=== PATIENT | female | born 1960 | race Caucasian/White ===

== ENCOUNTER 2019-07-08 08:16 | Outpatient (CLI) | payer OTHER, SELFPAY ==
--- NOTE | ~2019-07-08 | DEXA_ITS ---
BMD(1) Young-Adult(2) Age-Matched(3) Region (g/cm2) T-score Z-score WHO Classification L1 0.865 -2.2 -0.7 Osteopenia L2 0.956 -2.1 -0.5 Osteopenia L3 1.007 -1.7 -0.1 Osteopenia L4 0.931 -2.2 -0.7 Osteopenia L1-L4 0.942 -2.0 -0.5 Osteopenia Trend: L1-L4 Change vs Change vs Measured Age BMD(1) Baseline Previous Date (years) (g/cm2) (%) (%) 07/08/2019 [age] 0.942 baseline - 1 - Statistically 68% of repeat scans fall within 1SD (+- 0.010 g/cm2 for AP Spine L1-L4) 2 - [place] (Combined NHANES (ages 20-30) / [employer] (ages 20-40)) AP Spine Reference Population (v112) 3 - Matched for Age, Weight (females 25-100 kg), Ethnic 11 - World Health Organization - Definition of Osteoporosis and Osteopenia for Women: Normal = T-score at or above -1.0 SD; Osteopenia = T-score between -1.0 and -2.5 SD; Osteoporosis = T-score at or below -2.5 SD; (WHO definitions only apply when a young healthy Women reference database is used to determine T-scores.) Printed: 07/08/2019 8:44:19 AM (13.60)76:3.00:50.00:12.0 0.00:9.72 0.60x1.05 17.1:%Fat=27.7% 0.00:0.00 0.00:0.00 Verify bone is centered and there is sufficient tissue next to bone. Filename: [id number] Scan Mode: Standard;ThinkVidyacan 37.0 TourNative [id number] BMD(1) Young-Adult(2,7) Age-Matched(3) Region (g/cm2) T-score Z-score WHO Classification Neck Left 0.683 -2.6 -1.1 Osteoporosis Right 0.704 -2.4 -0.9 Osteopenia Mean 0.693 -2.5 -1.0 Osteoporosis Difference 0.021 0.1 0.1 - Total Left 0.709 -2.4 -1.2 Osteopenia Right 0.731 -2.2 -1.0 Osteopenia Mean 0.720 -2.3 -1.1 Osteopenia Difference 0.022 0.2 0.2 - Hip [place] Length Comparison (mm) (Right = 101.7 mm) (Mean = 99.6 mm) (Left = 100.9 mm) Trend: Total Mean Change vs Change vs Measured Age BMD(1) Baseline Previous Date (years) (g/cm2) (%) (%) 07/08/2019 59.2 0.720 baseline - 1 - Statistically 68% of repeat scans fall within 1SD (+- 0.010 g/cm2 for DualFemur Total) 2 - [place] (Combined NHANES (ages 20-30) / [employer] (ages 20-40)) Femur Reference Population (v112) 3 - Matched for Age, Weight (females 25-100 kg), Ethnic 7 - DualFemur Total T-score difference is 0.2. Asymmetry is None. 11 - World Health Organization - Definition of Osteoporosis and Osteopenia for Women: Normal = T-score at or above -1.0 SD; Osteopenia = T-score between -1.0 and -2.5 SD; Osteoporosis = T-score at or below -2.5 SD; (WHO definitions only apply when a young healthy Women reference database is used to determine T-scores.) Printed: 07/08/2019 8:44:19 AM (13.60); Filename: [id number]; Right Femur; 16.1:%Fat=25.1%; Neck Angle (deg)= 61; Scan Mode: Standard 37.0 uGy; Left Femur; 16.0:%Fat=25.8%; Neck Angle (deg)= 66; Scan Mode: Standard 37.0 uGy [employer] [id number] Dear Marina Abreu, Your patient kelvin scott completed a BMD test on 07/08/2019 using the [employer] DXA System (analysis version: 13.60) manufactured by [employer]. The following summarizes the results of our evaluation. PATIENT BIOGRAPHICAL: Name: kelvin scott Date: 1960 Height: 59.0 in. Gender: Female
== END 2019-07-08 08:17 | disposition home or self-care (01) ==
PROVIDERS: PCP Internal Medicine; Visit Provider Internal Medicine
DX: M81.0 Age-related osteoporosis without current pathological fracture (principal); Z78.0 Asymptomatic menopausal state
CPT/HCPCS: 77080

== ENCOUNTER 2019-07-19 12:26 | Outpatient (CLI) | payer OTHER, SELFPAY ==
--- NOTE | ~2019-07-19 | XR_ITS ---
EXAMINATION: XR sacroiliac jt inj w imag BI DATE: 07/19/2019 13:45 INDICATION: Sacroiliac joint pain. TECHNIQUE: A time-out was performed to verify the patient's name, date of , and procedure to b e performed. The procedure including the risks, benefits, and alternatives was discussed with the pat ient. Risks discussed included bleeding and infection. The patient understood the risks and agreed to proceed. The skin overlying the sacroiliac joints was prepped and draped in usual sterile fashion. Anesthetic was administered with 1% lidocaine subcutaneously. A 22 G needle was advanced under fluo roscopic guidance into the left sacroiliac joint. Injection of 1 mL of Omnipaque 240 confirmed posit ion of the needle. Subsequently, injectate consisting of 5 mL 1% lidocaine, 1 mL 40 mg/mL Kenalog, a nd 1 mL 4 mg/mL dexamethasone was instilled. A 22 G needle was advanced under fluoroscopic guidance into the right sacroiliac joint. Injection of 1 mL of Omnipaque 240 confirmed position of the needle. Subsequently, injectate consisting of 5 mL 1% lidocaine, 1 mL 40 mg/mL Kenalog, and 1 mL 4 mg/mL dexamethasone was instilled. There were no imme diate complications. Fluoroscopy exposure time was 0.1 minutes. The total number of images was 4. FINDINGS: Real-time fluoroscopy demonstrates the needle in the right sacroiliac joint. Patient's pain prior to procedure:4/10. Patient's pain following the procedure: 2/10. Real-time fluoroscopy demonstrates the needle in the left sacroiliac joint. Patient's pain prior to p rocedure:0/10. Patient's pain following the procedure: 0/10. IMPRESSION: 1. Right sacroiliac joint injection of local anesthetic and steroid with decrease in the patient's pr esenting pain. 2. Left sacroiliac joint injection of local anesthetic and steroid. Reviewed, dictated and finalized at location A. L AREA NETWORK ADMINISTRATOR IMPRESSION: 1. Right sacroiliac joint injection of local anesthetic and steroid with decrea se in the patient's presenting pain. 2. Left sacroiliac joint injection of local anesthetic and steroid.
== END 2019-07-19 12:27 | disposition home or self-care (01) ==
PROVIDERS: PCP Internal Medicine; Visit Provider Internal Medicine
DX: M53.3 Sacrococcygeal disorders, not elsewhere classified (principal)
CPT/HCPCS: 27096; G0260; J1100; J3301; Q9966

== ENCOUNTER 2019-08-04 06:34 | Day surgery (SDC) | payer OTHER, SELFPAY | END 2019-08-04 09:40 | disposition home or self-care (01) | LOC: CHSSURGERY 06:36 | PROVIDERS: PCP Internal Medicine; Visit Provider Surgery | DX: Z12.11 Encounter for screening for malignant neoplasm of colon (principal) | CPT/HCPCS: G0121; 00731; J2704; J7120 ==

== ENCOUNTER 2020-07-09 07:46 | Outpatient (CLI) | payer OTHER, SELFPAY ==
--- NOTE | ~2020-07-09 | MM_ITS ---
EXAMINATION: MM screening [facility] BI w brenda HISTORY: Screening mammogram TECHNIQUE: Craniocaudal and mediolateral oblique 3-D tomosynthesis images were obtained and synthetic 2-D images were generated. CAD analysis was submitted and interpreted. COMPARISON: 07/06/2019 BREAST PARENCHYMAL COMPOSITION: There are scattered areas of fibroglandular density. FINDINGS: There is no evidence of suspicious mass, calcification, or architectural distortion to sugg est malignancy in either breast. There has been no suspicious interval change. IMPRESSION: 1. No mammographic evidence of malignancy. 2. Recommend routine screening mammography in one year. BI-RADS Category 1: Negative Reviewed, dictated and finalized at location A. E TRIAGE SPECIALIST
== END 2020-07-09 07:47 | disposition home or self-care (01) ==
PROVIDERS: PCP Internal Medicine; Visit Provider Internal Medicine
DX: Z12.31 Encounter for screening mammogram for malignant neoplasm of breast (principal)
CPT/HCPCS: 77063; 77067

== ENCOUNTER 2020-07-28 07:12 | Outpatient (CLI) | payer OTHER, SELFPAY ==
--- NOTE | ~2020-07-28 | MR_ITS ---
EXAMINATION: MR lumbar spine wo [facility] EXAM DATE: 07/28/2020 08:09 INDICATION: Low back pain. Symptoms for 2 years. TECHNIQUE: Multi-sequential, multiplanar MR images of the lumbar spine were obtained without contrast . Sagittal T1, T2, T2 fat saturation images. Axial T2 weighted images. There is no prior study for comparison. FINDINGS: There is 2 mm anterolisthesis L4 on L5. The vertebral bodies are otherwise aligned. Mild di ffuse lumbar disc disease with minimal loss of the height at L5-S1. The conus medullaris terminates a t the T12-L1 level and has normal signal intensity and morphology. There are no suspicious marrow si gnal abnormalities. Paraspinal soft tissue is unremarkable. Level by level evaluation: T12-L1: There is a minimal diffuse disc bulge. Facet arthropathy: Minimal. Neural foraminal stenosis: No stenosis. Central canal stenosis: No stenosis. L1-L2: There is a mild diffuse disc bulge asymmetric to the left Facet arthropathy: Minimal. Neural foraminal stenosis: No stenosis. Central canal stenosis: No stenosis. L2-L3: There is a mild diffuse disc bulge. Facet arthropathy: Mild. Neural foraminal stenosis: Mild left. Central canal stenosis: No stenosis. L3-L4: There is a mild diffuse disc bulge. Facet arthropathy: Mild. Neural foraminal stenosis: Mild left. Central canal stenosis: No stenosis. L4-L5: There is a mild diffuse disc bulge. Facet arthropathy: Moderate right, mild to moderate left. Neural foraminal stenosis: Mild bilateral. Central canal stenosis: Minimal. L5-S1: There is a mild diffuse disc bulge. Tiny annular fissure. Facet arthropathy: Mild. Neural foraminal stenosis: No stenosis. Central canal stenosis: No stenosis. IMPRESSION: 1. Mild lumbar spondylosis. Reviewed, dictated and finalized at location A. OFFICER IMPRESSION: 1. Mild lumbar spondylosis.
== END 2020-07-28 07:13 | disposition home or self-care (01) ==
LOC: CHSIMG 07:13
PROVIDERS: PCP Internal Medicine; Visit Provider Internal Medicine
DX: M54.5 Low back pain (principal)
CPT/HCPCS: 72148

== ENCOUNTER 2021-04-05 13:54 | Outpatient (CLI) | payer OTHER, SELFPAY ==
[2021-04-05 14:08] VITALS: BMI 25.2
[2021-04-05 14:10] VITALS: BP 118/67; PULSE 60; RESP 20; TEMP 36.3; O2SAT 97
[2021-04-05] MEDS: ZOLEDRONIC ACID 5 MG/100 ML 100 ML 400 MG IVPB (14:12)
--- NOTE | 2021-04-05 14:20 | PC.NURSE ---
Patient here for IV Reclast infusion. Education on medication given. No concerns voiced. Reclast IV infusion administered SEE MAR. Tolerated well. Safe exit of hospital. Will return next year.
== END 2021-04-05 13:55 | disposition home or self-care (01) ==
LOC: CHSTREATRM 13:55
PROVIDERS: PCP Internal Medicine; Visit Provider Internal Medicine
DX: M81.0 Age-related osteoporosis without current pathological fracture (principal)
CPT/HCPCS: 96365; J3489

== ENCOUNTER 2021-07-17 12:32 | Outpatient (CLI) | payer OTHER, SELFPAY ==
--- NOTE | ~2021-07-17 | MM_ITS ---
EXAMINATION: MM screening [facility] BI w brenda HISTORY: Screening mammogram TECHNIQUE: Craniocaudal and mediolateral oblique 3-D tomosynthesis images were obtained and synthetic 2-D images were generated. CAD analysis was submitted and interpreted. COMPARISON: 07/09/2020, 07/06/2019 BREAST PARENCHYMAL COMPOSITION: There are scattered areas of fibroglandular density. FINDINGS: There is no evidence of suspicious mass, calcification, or architectural distortion to sugg est malignancy in either breast. There has been no suspicious interval change. IMPRESSION: 1. No mammographic evidence of malignancy. 2. Recommend routine screening mammography in one year. BI-RADS Category 1: Negative Reviewed, dictated and finalized at location A. STMENT COUNSELOR
== END 2021-07-17 12:33 | disposition home or self-care (01) ==
LOC: CHSIMG 12:33
PROVIDERS: PCP Internal Medicine
DX: Z12.31 Encounter for screening mammogram for malignant neoplasm of breast (principal)
CPT/HCPCS: 77063; 77067

== ENCOUNTER 2022-05-23 16:40 | Emergency (ER) | payer OTHER, SELFPAY ==
--- NOTE | ~2022-05-23 | XR_ITS ---
EXAMINATION: XR ankle RT min 3V, XR foot RT min 3V DATE: 05/23/2022 17:05 INDICATION: Lateral right foot and ankle pain post injury TECHNIQUE: 1. Anteroposterior, mortise, additional oblique and lateral view of the right ankle were obtained. 2. Dorsoplantar, two oblique and lateral views of the right foot were obtained. COMPARISON: None. FINDINGS: Tiny 3 mm distraction of a small avulsion fracture fragment at the dorsal-lateral margin of the anter ior process of the calcaneus likely involving the footplate of the bifurcate ligament. No other fract ures identified. Alignment of the right foot and ankle is otherwise normal. Mild osteoarthritis at th e first metatarsophalangeal joint. No ankle joint effusion. Soft tissue swelling at the dorsolateral aspect of the hindfoot. IMPRESSION: 1. Mild distraction of a small avulsion fracture fragment likely involving the bifurcate ligament rosita tplate of the dorsal-lateral margin of the anterior process of the calcaneus. Reviewed, dictated and finalized at location A. ER BRUSH MAN IMPRESSION: 1. Mild distraction of a small avulsion fracture fragment likely involving the bifurcate ligament footplate of the dorsal-lateral margin of the anterior proce ss of the calcaneus.
--- NOTE | 2022-05-23 16:44 | ED.LOWEXIN ---
HPI - Extremity Injury (Lower) General Chief Complaint: Extremity Injury, Lower Stated Complaint: right foot pain Time Seen by Provider: 05/23/22 16:44 Source: patient Mode of arrival: ambulatory Limitations: no limitations History of Present Illness HPI Narrative: Patient is a 62-year-old white female she is walking down some steps and missed a step, twisting her right foot and ankle around noon time today. She complains of lateral foot pain and inferior to her right lateral malleolus with swelling and bruising. Hurts to walk on it. She has not taken anything for pain. When she was a teenager she hurt her foot but never really had it x-rayed her seen by anyone. Denies any numbness Or tingling.. Said she ended up falling on her butt and it has aggravated her SI joint disease. Pain in her right buttocks not really change in his mild. Denies any leg or knee pain or any other pain. Past medical history: Osteoporosis, SI joint disease. Past surgical history: Left knee surgery Related Data Home Medications Medication Instructions Recorded Confirmed No Home Medications 04/05/21 05/23/22 Allergies Allergy/AdvReac Type Severity Reaction Status Date / Time ibuprofen Allergy Swelling Verified 05/23/22 16:52 Review of Systems Review of Systems: Patient denies any problems with nausea vomiting diarrhea problems eating drinking stooling or voiding. Denies any bleeding or bruising rash or itching, cough runny nose sore throat. Denies any problems talking seeing hearing numbness weakness or tingling. Or any other complaints. Eyes: Eyes: Reports no additional eye complaints Cardiovascular: Cardiovascular: Denies chest pain Respiratory: Respiratory: Denies chest congestion, Denies cough and Denies dyspnea Gastrointestinal: Gastrointestinal: Denies abdominal pain Genitourinary: Genitourinary: Denies hematuria, Denies nocturia, Denies dysuria and Denies urinary incontinence Musculoskeletal: Musculoskeletal: Reports as per HPI, Denies back pain and Denies myalgias Integumentary/Breasts: Skin/Breast: Denies pruritus and Denies rash Neurologic: Denies dizziness, Denies syncope, Denies headache(s), Denies focal weakness, Denies numbness and Denies weakness Exam Const: General: healthy appearing Nutritional Appearance: well nourished Orientation/consciousness: patient oriented x3 Limitations: no limitations Other: right lower extremity: Right foot she has swelling and bruising and mild tenderness over the proximal 5th 4th and 3rd metatarsal area with bruising and tenderness under the lateral malleolus. Rest her foot is nontender toes are nontender with full range of motion. Her right ankle has full range of motion which is a little tenderness under the right lateral inferior aspect of her malleolus. Right DP and PT pulses are +2. The rest of her ankle is normal. Right leg, knee and thigh are nontender. Her right pelvis is mildly tenderness with tenderness over right SI joint. She has full range of motion of her right hip otherwise nontender. Gait antalgic. Neurological motor and sensory grossly intact. Skin is warm and dry. Course Vital Signs Vital signs: Vital Signs Temperature 37.2 C 05/23/22 16:48 Pulse Rate 78 05/23/22 16:48 Respiratory Rate 16 05/23/22 16:48 Blood Pressure 122/71 05/23/22 16:48 Pulse Oximetry 99 05/23/22 16:48 Oxygen Delivery Room Air 05/23/22 16:48 Temperature 37.2 C 05/23/22 16:48 Pulse Rate 78 05/23/22 16:48 Respiratory Rate 16 05/23/22 16:48 Blood Pressure 122/71 05/23/22 16:48 Pulse Oximetry 99 05/23/22 16:48 Oxygen Delivery Room Air 05/23/22 16:48 MDM - Extremity Injury (Lower) MDM Narrative Medical decision making narrative: RIGHT FOOT AND ANKLE FINDINGS: Tiny 3 mm distraction of a small avulsion fracture fragment at the dorsal-lateral margin of the anterior process of the calcaneus likely involving the footplate of the bifur
[2022-05-23 16:48] VITALS: BP 122/71; PULSE 78; RESP 16; TEMP 37.2; O2SAT 99
[2022-05-23] MEDS: ACETAMINOPHEN 500 MG TABLET 1000 MG PO (17:17)
[2022-05-23 18:00] VITALS: BP 122/71; PULSE 78; RESP 16; TEMP 37.2; O2SAT 99
== END 2022-05-23 18:16 | disposition home or self-care (01) ==
PROVIDERS: Emergency Provider Emergency Medicine; PCP Internal Medicine
DX: S92.021A Displaced fracture of anterior process of right calcaneus, initial encounter for closed fracture (principal); X50.0XXA Overexertion from strenuous movement or load, initial encounter
CPT/HCPCS: 73610; 73630; 99284; L2112

== ENCOUNTER 2022-07-22 08:01 | Outpatient (CLI) | payer OTHER, SELFPAY ==
--- NOTE | ~2022-07-22 | MM_ITS ---
EXAMINATION: MM screening [facility] BI w brenda HISTORY: Screening TECHNIQUE: Craniocaudal and mediolateral oblique 3-D tomosynthesis images were obtained and synthetic 2-D images were generated. CAD analysis was submitted and interpreted. COMPARISON: Comparison to multiple prior studies sequentially, with oldest reviewed study dated 07/06. BREAST PARENCHYMAL COMPOSITION: The breasts are heterogeneously dense, which may obscure small masses FINDINGS: There is no evidence of suspicious mass, calcification, or architectural distortion to sugg est malignancy in either breast. There has been no suspicious interval change. IMPRESSION: 1. No mammographic evidence of malignancy. 2. Recommend routine screening mammography in one year. BI-RADS Category 1: Negative Reviewed, dictated and finalized at location A. UP
== END 2022-07-22 08:02 | disposition home or self-care (01) ==
LOC: CHSIMG 08:02
PROVIDERS: PCP Internal Medicine; Visit Provider Internal Medicine
DX: Z12.31 Encounter for screening mammogram for malignant neoplasm of breast (principal)
CPT/HCPCS: 77063; 77067

== ENCOUNTER 2022-12-12 12:07 | Outpatient (CLI) | payer OTHER, SELFPAY ==
--- NOTE | ~2022-12-12 | DEXA_ITS ---
Bone Density Report Name: ZARA SIMONS Age: 62 Sex: Female Ethnicity: White Date of : 1960 Indication: postmenopausal; screening for osteoporosis; prior fracture; Referring Provider: Marina Abreu Study: Bone densitometry was performed. Exam Date: December 12, 2022 Accession number: [id number] Bone Density: Region BMD T-score Z-score Classification AP Spine(L1-L4) 0.777 -2.5 -0.7 Osteoporosis Femoral Neck (Left) 0.566 -2.6 -1.1 Osteoporosis Total Hip (Left) 0.744 -1.6 -0.4 Osteopenia Femoral Neck (Right) 0.572 -2.5 -1.0 Osteoporosis Total Hip (Right) 0.738 -1.7 -0.5 Osteopenia Femoral Neck Mean 0.569 -2.5 -1.0 Osteoporosis Total Hip Mean 0.741 -1.6 -0.4 Osteopenia World Health Organization criteria for BMD impression classify patients as: Normal (T-score at or above -1.0), Osteopenia (T-score between -1.0 and -2.5), or Osteoporosis (T-score at or below -2.5). 10-year Fracture Risk: FRAX not reported because: Some T-score for Spine Total or Hip Total or Femoral Neck at or below -2.5 Clinical Information Provided by Patient: Has had a low trauma fracture Patient maximum height was 60 Menopause Age: 48 Drinks caffeinated beverages Onset of menses at age 9 Number of children 2 Missed period for more than 6 months in a row Impression: The patient has established osteoporosis, based on the Left Femoral Neck T-score and the existence of a prior fracture. The patient has risk factors, including: previous fracture. Discussion: HIGH RISK OF FRACTURE. BONE DENSITY IS UNDESIRABLY LOW AT ONE OR MORE SKELETAL SITES, CONSISTENT WITH POSTMENOPAUSAL OSTEOPOROSIS. This patient's lowest T-score, in a patient who has previously fractured, meets the World Health Organization's (WHO) criteria for severe osteoporosis. In untreated patients, the risk of osteoporotic fracture increases approximately two-fold for each 1.0 SD decrease in T-score. Low bone density is not the only risk factor for fracture; also consider factors such as patient's age, frailty or poor health, risk of falling, risk of injury, previous osteoporotic fracture, family history of osteoporosis, cigarette smoking, low body weight, etc. Not everyone with low bone mineral density has osteoporosis; osteomalacia and other metabolic bone disorders should also be considered. Patients who have osteoporosis should be evaluated for specific diseases and conditions (secondary causes) that may cause or contribute to bone loss. The [place] [employer] Endocrinologists (AACE) and National Osteoporosis Foundation (NOF) recommend pharmacologic intervention for all postmenopausal women whose T-score is in this range. The patient should follow a healthful lifestyle (good nutrition with adequate calcium and vitamin D, and appropr
== END 2022-12-12 12:08 | disposition home or self-care (01) ==
LOC: CHSIMG 12:08
PROVIDERS: PCP Internal Medicine; Visit Provider Internal Medicine
DX: M81.0 Age-related osteoporosis without current pathological fracture (principal); M85.89 Other specified disorders of bone density and structure, multiple sites
CPT/HCPCS: 77080

== ENCOUNTER 2023-06-12 09:19 | Outpatient (CLI) | payer MEDICARE, OTHER, SELFPAY ==
[2023-06-12] MEDS: ZOLEDRONIC ACID 5 MG/100 ML 100 ML 400 MG IVPB (09:40)
[2023-06-12 09:50] VITALS: BP 121/69; PULSE 68; RESP 14; TEMP 36.4; O2SAT 100; BMI 23.6
--- NOTE | 2023-06-12 10:19 | PC.NURSE ---
Patient here for yearly IV Reclast infusion. Education given. No concerns voiced. IV Reclast administered. SEE MAR. Tolerated well. Safe exit of hospital per self/ambulatory.
== END 2023-06-12 09:20 | disposition home or self-care (01) ==
LOC: CHSTREATRM 09:25
PROVIDERS: PCP Internal Medicine; Visit Provider Internal Medicine
DX: M81.0 Age-related osteoporosis without current pathological fracture (principal)
CPT/HCPCS: 96374; J3489

== ENCOUNTER 2023-07-27 07:42 | Outpatient (CLI) | payer MEDICARE, OTHER, SELFPAY ==
--- NOTE | ~2023-07-27 | MM_ITS ---
EXAMINATION: MM screening [facility] BI w brenda HISTORY: Screening TECHNIQUE: Craniocaudal and mediolateral oblique 3-D tomosynthesis images were obtained and synthetic 2-D images were generated. CAD analysis was submitted and interpreted. COMPARISON: Comparison to multiple prior studies sequentially, with oldest reviewed study dated 04/09. BREAST PARENCHYMAL COMPOSITION: There are scattered areas of fibroglandular density. FINDINGS: There is a new focal asymmetry centered in the upper outer quadrant of the right breast, mi ddle third. The left breast is stable without evidence for malignancy. IMPRESSION: 1. New focal asymmetry upper outer quadrant of the right breast, middle third. 2. Additional mammographic views and possible breast ultrasound are recommended. BI-RADS Category 0: Incomplete: Needs additional imaging evaluation. Reviewed, dictated and finalized at location A. CEMENT AND PAINT MAKER HELPER IMPRESSION: 1. New focal asymmetry upper outer quadrant of the right breast, middle third. 2. Additional mammographic views and possible breast ultrasound are recommended . BI-RADS Category 0: Incomplete: Needs additional imaging evaluation.
== END 2023-07-27 07:43 | disposition home or self-care (01) ==
LOC: CHSIMG 07:43
PROVIDERS: PCP Internal Medicine; Visit Provider Internal Medicine
DX: Z12.31 Encounter for screening mammogram for malignant neoplasm of breast (principal)
CPT/HCPCS: 77063; 77067

== ENCOUNTER 2023-08-03 09:28 | Outpatient (CLI) | payer MEDICARE, OTHER, SELFPAY ==
--- NOTE | ~2023-08-03 | MMUS_ITS ---
EXAMINATION: MM diagnostic [facility] RT w brenda, US breast RT limited HISTORY: Follow-up right breast asymmetry TECHNIQUE: Additional 3-D tomosynthesis images of the right breast were performed and synthetic 2-D i mages were generated. CAD analysis was submitted and interpreted. High resolution Limited right breas t ultrasound was performed. COMPARISON: Comparison to multiple prior studies sequentially, with oldest reviewed study dated 07/06. BREAST PARENCHYMAL COMPOSITION: Not dense: There are scattered areas of fibroglandular density. FINDINGS: MAMMOGRAPHIC FINDINGS: Right breast asymmetry is less apparent with spot compression and mediolateral views, consistent with superimposed fibroglandular content. ULTRASOUND: Limited right breast ultrasound: Normal heterogeneous echotexture without focal solid or cystic mass. Mildly prominent subareolar ducts noted. IMPRESSION: 1. No evidence for malignancy in the right breast. 2. Routine yearly screening mammogram and regular clinical breast examination are recommended. BI-RADS Category 1: Negative Reviewed, dictated and finalized at location A. LEWARE ADMINISTRATOR IMPRESSION: 1. No evidence for malignancy in the right breast. 2. Routine yearly screening mammogram and regular clinical breast examination a re recommended. BI-RADS Category 1: Negative
== END 2023-08-03 09:29 | disposition home or self-care (01) ==
LOC: CHSIMG 09:30
PROVIDERS: PCP Internal Medicine; Visit Provider Internal Medicine
DX: R92.8 Other abnormal and inconclusive findings on diagnostic imaging of breast (principal)
CPT/HCPCS: 76642; 77061; 77065; G0279

== ENCOUNTER 2024-08-02 14:22 | Outpatient (CLI) | payer MEDICARE, SELFPAY ==
--- NOTE | ~2024-08-02 | MM_ITS ---
EXAMINATION: MM screening katina BI w brenda HISTORY: Screening mammogram, family history of breast cancer in her sister. TECHNIQUE: Craniocaudal and mediolateral oblique 3-D tomosynthesis images were obtained and synthetic 2-D images were generated. CAD analysis was submitted and interpreted. COMPARISON: 08/03/2023, 07/27/2023, 07/22/2022, 07/17/2021, 07/09/2020 BREAST PARENCHYMAL COMPOSITION:Not Dense. There are scattered areas of fibroglandular density. FINDINGS: No suspicious mass, calcification, or architectural distortion are identified in either liya ast to suggest malignancy. There has been no suspicious interval change. IMPRESSION: No mammographic evidence of malignancy. Recommend routine screening mammography in one year. BI-RADS Category 1: Negative Reviewed, dictated and finalized at [facility]. [facility]
[2024-08-02 14:31] VITALS: BMI 23.6
[2024-08-02] MEDS: ZOLEDRONIC ACID 5 MG/100 ML 100 ML 400 MG IVPB (15:00)
[2024-08-02 15:23] VITALS: BP 120/77; PULSE 68; RESP 14; O2SAT 99
--- NOTE | 2024-08-02 15:28 | PC.NURSE ---
Patient here for yearly IV Reclast infusion. Education given. NO concerns voiced. Reports did well last year with infusion. Infusion administered. SEE MAR/patient care notes. Tolerated well.
--- OUTSIDE RECORDS SUMMARY | 2024-08-02 16:46 | XMS_ITS | Clinical Summary ---
Author Organization [facility] Address [address] [place] [id number] Care Team Providers Care Inward Toll Operator Name Role Phone Unavailable Primary Care Provider Unavailabl e Social History Tobacco Use Types Packs/Day Years Used Date Smoking Tobacco: Never Assessed Comments Unknown Sex and Gender Information Value Date Recorded Sex Assigned at Not on file Legal Sex Female 5:22 PM CDT Gender Identity Not on file Sexual Orientation Not on file Plan of Treatment Health Maintenance Due Date Last Done Comments Colorectal Cancer Screening Colonoscopy (10 Years) 1960 Hepatitis C 1976 DTaP, Tdap and Td Vaccines ( 1 - Tdap) 1977 Mammogram Screening 1998 Zoster Vaccines (1 of 2) 2008 Dexa Scan (General) 2023 Pneumococcal Vaccine: 65+ Ye ars (1 of 1 - PCV) 2023 COVID-19 Vaccine ( - 2023-2 5 season) 2024 Influenza Adult (#1) 2024 RSV Immunization or 60+ Years (1 - 1-dose 75+ series) 2033 Meningococcal B Vaccine Aged Out No l onger eligible based on patient's age to complete this topic Meningococcal Vaccine Aged Out No blaine georgi eligible based on patient's age to complete this topic Pneumococcal Vaccine: Pediat rics (0 to 5 Years) and At-Risk Patients (6 to 64 Years) Aged Out No longer eligible b ased on patient's age to complete this topic RSV Immunizations Under 20 Months Aged Out No longer eligible based on patient's age to complete this topic
--- OUTSIDE RECORDS SUMMARY | 2024-08-02 16:46 | XMS_ITS | Referral Summary ---
Author Organization [facility] Address [address] [place] [id number] Care Team Providers Care Outpatient Admitting Clerk Name Role Phone Marina Abreu MD Primary Care Provider + [phone] Allergies Active Allergy Reactions Criticality Noted Date Comments Ibuprofen Swelling Medium 09/17/2020 Medications multivit with minerals/lutein (MULTIVITAMIN 50 PLUS ORAL) multivitamin Act antony alendronate (FOSAMAX) 70 mg tablet TAKE 1 TABLET BY MOUTH ONCE WEEKLY IN THE MORNING,30 MIN BEFORE FIRST FOOD, BEVERAGE, OR MED OF DAY 1 Active fexofenadine ([facility] Allergy) 180 mg tablet daily Active terbinafine (LamiSIL) 250 mg tablet Take 250 mg by mouth daily 1 Active ospemifene 60 mg tabletIndicatio ns:Vaginal atrophy Take 60 mg by mouth daily 1 tablet 3 1 Active Active Problems Problem Noted Date Diagnosed Date Vaginal atrophy with decreased vaginal caliber 0 09/17/2020 Allergic rhinitis 04/20/2017 Social History Tobacco Use Types Packs/Day Years Used Date Smoking Tobacco: Never Personal Safety Answer Date Recorded Getting School Help Needed Not on file 08/07 Comments No Sex and Gender Information Value Date Recorded Sex Assigned at Not on file 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 Gender Identity Female 09/16/2020 8:47 PM CDT Sexual Orientation Not on file Last Filed Vital Signs Vital Sign Reading Time Taken Comments Blood Pressure 118/78 09/17/2020 10:39 AM CDT Pulse - - Temperature - - Respiratory Rate - - Oxygen Saturation - - Inhaled Oxygen Concentration - - Weight 58.8 kg (129 lb 9.6 oz) 09/17/2020 10:39 AM CDT Height 149.9 cm (4' 11 ) 09/17/2020 10:39 AM CDT Body Mass Index 26.18 09/17/2020 10:39 AM CDT Plan of Treatment Not on file Insurance [facility] Advance Directives For more information, please contact: [phone] Documents on File Type Date Recorded Patient C D Still Operator Expl anation ADVANCE DIRECTIVE 03/09/2011 12:00 AM LAMAR Kennedy OF 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
--- OUTSIDE RECORDS SUMMARY | 2024-08-02 16:46 | XMS_ITS | Clinical Summary ---
Author Organization [facility] Address [address] [place] [id number] Care Team Providers Care Repairer Welding Equipment Name Role Phone Marina Abreu MD Primary Care Provider + [phone] Allergies Active Allergy Reactions Criticality Noted Date [...] vaginal caliber 0 09/17/2020 Allergic rhinitis 04/20/2017 Family History Medical History Relation Name Comments Breast cancer Father's Sister Relation Name Status Comments Father's Sister Other at age 60's Social History Tobacco Use Types Packs/Day Years Used Date Smoking Tobacco: Never Personal Safety Answer Date Recorded Getting School Help Needed Not on file 08/07 Comments No Sex and Gender Information Value Date Recorded Sex Assigned at Not on file 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 Gender Identity Female 09/16/2020 8:47 PM CDT Sexual Orientation Not on file Obstetrics History Para Term AB IAB SAB Ectopic Multiple Livin g Live Births 2 2 2 2 Date Outcome GA Total Labor Labor/2nd/3rd Weight Sex Type Anes PTL Merly A1 A5 Name Clin Term Term Last Filed Vital Signs Vital Sign Reading [...] Plan of Treatment Not on file Insurance [facility] Advance Directives For more information, please contact: [phone] Documents on File Type Date Recorded Patient Car Top Bolter Expl anation ADVANCE DIRECTIVE 03/09/2011 12:00 AM LAMAR R OF CONSERVATION OR HERITAGE 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
== END 2024-08-02 14:23 | disposition home or self-care (01) ==
PROVIDERS: PCP Internal Medicine; Visit Provider Internal Medicine
DX: M81.0 Age-related osteoporosis without current pathological fracture (principal); Z12.31 Encounter for screening mammogram for malignant neoplasm of breast
CPT/HCPCS: 77063; 77067; 96374; J3489

== ENCOUNTER 2024-11-01 14:21 | Outpatient (CLI) | payer MEDICARE, SELFPAY ==
--- NOTE | ~2024-11-01 | XR_ITS ---
EXAMINATION: XR chest 2V 11/01/2024 14:51 INDICATION: Chest tightness PROCEDURE: 2 view chest COMPARISON: No prior studies for comparison. FINDINGS: The lungs are clear. The cardiomediastinal silhouette is within normal limits. There are no pleural effusions. There is no pneumothorax suspected. IMPRESSION: 1: NO ACUTE CARDIOPULMONARY DISEASE. Reviewed, dictated and finalized at location A.
--- OUTSIDE RECORDS SUMMARY | 2024-11-01 14:25 | XMS_ITS | Data Portability ---
Author Organization [place] - [facility], OBGYN Address [address] [place] [address] Care Team Providers Care Manual Qa Tester Name Role Phone JOSE TALLEY Referring Provider JOSE TALLEY Primary Care Provider Assessment No assessment recorded. Plan of Treatment Reminders Order Date Submit Date Provider Last Modified By Organization Details Last Modified Time Details Appointments None recorded. Lab CBC w/ auto diff 2017 018 [facility] (Lab), [address], [place], [address], 8 11:20:34 lipid panel, serum 2017 018 [facility] (Lab), [address], [address], [place], [address], 8 13:08:44 BMP, serum or plasma 2017 018 [facility] (Lab), [address], [address], [place], [address], 8 08:08:54 pap, LB + reflex HR HPV [address] [facility], [address], [place], [address], 8 14:03:31 CBC w/ auto diff 2016 017 [facility], [address], [place], [address], 7 08:08:46 BMP, serum or plasma 2016 017 [facility], [address], [place], [address], 7 08:08:47 lipid panel, serum 2016 017 [facility], [address], [place], [address], 7 08:08:47 vitamin D, 25-hydroxy , total, serum 2016 017 [facility], [address], [address], [place], [address], 7 08:08:48 urinalysis , dipstick 2015 016 In-House Results, For Internal Use Only, Do Not Delete/merge, [id number] 6 17:14:23 pap, LB + reflex HR HPV 2015 016 [facility], [address], [place], [address], 6 16:01:14 CBC 2015 016 [facility] (Lab), [address], [address], [place], [address], 6 11:06:24 BMP, serum or plasma 2015 016 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 Surgeries None recorded. Imaging MAMMO, screening, digital, bilateral 2017 018 [facility] (Imaging), [address], [place], [address], 9 17:23:14 DEXA, axial skeleton 2016 017 [facility] ([facility]), [address], [place], [address], 7 15:16:10 MAMMO, screening, digital, bilateral 2016 017 [email or web address] [facility] (Imaging), [address], [place], [address], 8 10:27:46 XR, foot, 3 or more view 2016 017 [facility] ([facility]), [address], [place], [address], 7 13:42:04 Medication Orders Medrol (Rigoberto) 4 mg tablets in a dose pack 2016 017 migration. [address] [facility], [address], [place], [place], [id number], 2 09:35:52 Patient TargetsNo targets recorded. 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 possible reaction to Ibuprofen Referring Physician: [facility], Encounter Date: 01/29/2016 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 Referring Physician: Jose Talley [facility], Encounter Date: 10/29/2016 Results Created Date Observation Date Name Description Value Unit Range Abnormal Flag Note LastModifiedBy Organization Detail LastModifiedTime 01/29/20 16 01/29/2016 urina lysis , dipst ick Unknown Analyte yellow Not Available In-Yoko se Results For Internal Use Only, Do Not Delete/merge, [id number] 01/29/2016 16:11:47 01/29/20 16 01/29/2016 urina lysis , dipst ick Unknown Analyte clear Not Available In-Yoko se Results For Internal Use Only, Do Not Delete/merge, [id number] 01/29/2016 16:11:47 01/29/20 16 01/29/2016 urina lysis , dipst ick Unknown Analyte negati ve Not Available In-House Results For Internal Use Only, Do Not Delete/merge, [id number] 01/29/2016 16:11:47 01/29/20 16 01/29/2016 urina lysis , dipst ick Unknown Analyte negati ve Not Available In-House Results For Internal Use Only, Do Not Delete/merge, [id number] 01/29/2016 16:11:47 01/29/20 16 01/29/2016 urina lysis , dipst ick Unknown Analyte negati ve Not Available In-House Results For Internal Use Only, Do Not Delete/merge, [id number] 01/29/2016 16:11:47 01/29/20 16 01/29/2016 urina lysis , dipst ick Unknown Analyte 1.030 Not Available In-Yoko se Results For Internal Use Only, Do Not Delete/merge, 01/29/2016 16:11:47 01/29/20 16 01/29/2016 urina lysis , dipst ick Unknown Analyte negati ve Not Available In-House Results For Internal Use Only, Do Not Delete/merge, 01/29/2016 16:11:47 01/29/20 16 01/29/2016 urina lysis , dipst ick Unknown Analyte 6.0 Not Available In-Yoko se Results For Internal Use Only, Do Not Delete/merge, 01/29/2016 16:11:47 01/29/20 16 01/29/2016 urina lysis , dipst ick Unknown Analyte negati ve Not Available In-House Results For Internal Use Only, Do Not Delete/merge, 01/29/2016 16:11:47 01/29/20 16 01/29/2016 urina lysis , dipst ick Unknown Analyte 0.2 Not Available In-Yoko se Results For Internal Use Only, Do Not Delete/merge, 01/29/2016 16:11:47 01/29/20 16 01/29/2016 urina lysis , dipst ick Unknown Analyte negati ve Not Available In-House Results For Internal Use Only, Do Not Delete/merge, 01/29/2016 16:11:47 01/29/20 16 01/29/2016 urina lysis , dipst ick Unknown Analyte 1+ Not Available In-Yoko se Results For Internal Use Only, Do Not Delete/merge, 01/29/2016 16:11:47 02/01/20 16 02/02/2016 CBC WBC 4.7 x10e3 /uL 3.4-10 .8 Not Available [facility] ([facility]) [address] [place], [address], 02/02/2016 08:18:20 02/01/20 16 02/02/2016 CBC RBC 4.70 x10e6 /uL 3.77-5 .28 Not Available [facility] ([facility]) [address] [place], [address], 02/02/2016 08:18:20 02/01/20 16 02/02/2016 CBC hemoglobin 13.0 g/dL 11.1-1 5.9 Not Available [facility] ([facility]) [address] [place], [address], 02/02/2016 08:18:20 02/01/20 16 02/02/2016 CBC hematocrit 39.1 % 34.0-4 6.6 Not Available [facility] ([facility]) [address], [place], [address], 02/02/2016 08:18:20 02/01/20 16 02/02/2016 CBC MCV 83 fL 79-97 Not Available [facility] ([facility]) [address], [place], [address], 02/02/2016 08:18:20 02/01/20 16 02/02/2016 CBC MCH 27.7 pg 26.6-3 3.0 Not Available [facility] ([facility]) [address], [place], [address], 02/02/2016 08:18:20 02/01/20 16 02/02/2016 CBC MCHC 33.2 g/dL 31.5-3 5.7 Not Available [facility] ([facility]) [address], [place], [address], 02/02/2016 08:18:20 02/01/20 16 02/02/2016 CBC RDW 13.2 % 12.3-1 5.4 Not Available [facility] ([facility]) [address], [place], [address], 02/02/2016 08:18:20 02/01/20 16 02/02/2016 CBC platelets 268 x10e3 /uL 150-37 9 Not Available [facility] ([facility]) [address], [place], [address], 02/02/2016 08:18:20 02/01/20 16 02/02/2016 CBC neutrophils 57 % Not Avai lable [facility] ([facility]) [address], [place], [place], [address], 02/02/2016 08:18:20 02/01/20 16 02/02/2016 CBC lymphs 32 % Not Available [facility] ([facility]) [address], [place], [place], [address], 02/02/2016 08:18:20 02/01/20 16 02/02/2016 CBC monocytes 8 % Not Availa ble [facility] ([facility]) [address] [place], [address], 02/02/2016 08:18:20 02/01/20 16 02/02/2016 CBC eos 2 % Not Available [facility] ([facility]) [address], [place], [place], [address], 02/02/2016 08:18:20 02/01/20 16 02/02/2016 CBC basos 1 % Not Available [facility] ([facility]) [address], [place], [place], [address], 02/02/2016 08:18:20 02/01/20 16 02/02/2016 CBC immature cells REFINED SYRUP OPERATOR Not Available [facility] ([facility]) [address] [place], [address], 02/02/2016 08:18:20 02/01/20 16 02/02/2016 CBC neutrophils (absolute) 2.7 x10e3 /uL 1.4-7. 0 Not Available [facility] ([facility]) [address] [place], [address], 02/02/2016 08:18:20 02/01/20 16 02/02/2016 CBC lymphs (absolute) 1.5 x10e3 /uL 0.7-3. 1 Not Available [facility] ([facility]) [address], [place], [place], [address], 02/02/2016 08:18:20 02/01/20 16 02/02/2016 CBC monocytes(ab solute) 0.4 x10e3 /uL 0.1-0. 9 Not Available [facility] ([facility]) [address], [place], [place], [address], 02/02/2016 08:18:20 02/01/20 16 02/02/2016 CBC eos (absolute) 0.1 x10e3 /uL 0.0-0. 4 Not Available [facility] ([facility]) [address], [place], [place], [address], 02/02/2016 08:18:20 02/01/20 16 02/02/2016 CBC baso (absolute) 0.0 x10e3 /uL 0.0-0. 2 Not Available [facility] ([facility]) [address], [place], [place], [address], 02/02/2016 08:18:20 02/01/20 16 02/02/2016 CBC immature granulocytes 0 % Not Available [facility] ([facility]) [address], [place], [place], [address], 02/02/2016 08:18:20 02/01/20 16 02/02/2016 CBC immature grans (abs) 0.0 x10e3 /uL 0.0-0. 1 Not Available [facility] ([facility]) [address], [place], [place], [address], 02/02/2016 08:18:20 02/01/20 16 02/02/2016 CBC NRBC REFINED SYRUP OPERATOR Not Available [facility] ([facility]) [address], [place], [place], [address], 02/02/2016 08:18:20 02/01/20 16 02/02/2016 CBC hematology comments: REFINED SYRUP OPERATOR Not Available [facility] ([facility]) [address], [place], [place], [address], 02/02/2016 08:18:20 02/01/20 16 02/01/2016 BMP, serum or plasm a interpretati on: COMMEN T GFR ESTIM ATE AT THE FOLLO WING LEVEL FOR >OR=3 MONTH S IS CLASS IFIED FOLLO WS: GFR WITH KIDNE Y DAMAG E WITHO UT KIDNE Y DAMAG E >OR=9 0 STAGE 1 TONI L 60-89 STAGE 2 DECR EASED GFR 30-59 STAGE 3 STAGE 3 15-29 STAGE 4 STAGE 4 <15 (OR DIALY SIS) STAGE 5 STAGE 5 ESTIM ATED GFR WILL OVER ESTIM ATE TRUE GFR IF SERUM CREAT ININE IS RISIN G IN ACUTE RENAL FAILU RE AND WILL UNDER ESTIM ATE TRUE GFR IF SERUM CREAT ININE IS DECLI SHARI IN RESOL VING ACUTE RENAL FAILU RE. ADDIT IONAL INFOR TOM Heller MAY BE FOUND AT WWW.K DOQI. ORG. Not Available [facility] ([facility]) [address] [place], [address], 02/02/2016 08:18:20 02/01/20 16 02/02/2016 BMP, serum or plasm a glucose, serum 85 mg/dL 65-99 Not Available [facility] ([facility]) [address] [place], [address], 02/02/2016 08:18:20 02/01/20 16 02/02/2016 BMP, serum or plasm a BUN 12 mg/dL 6-24 Not Available [facility] ([facility]) [address] [place], [address], 02/02/2016 08:18:20 02/01/20 16 02/02/2016 BMP, serum or plasm a creatinine, serum 0.82 mg/dL 0.57-1 .00 Not Available [facility] ([facility]) [address] [place], [address], 02/02/2016 08:18:20 02/01/20 16 02/02/2016 BMP, serum or plasm a eGFR if nonafricn AM 80 mL/mi n/1.7 3 >59 Not Available [facility] ([facility]) [address], [place], [address], 02/02/2016 08:18:20 02/01/20 16 02/02/2016 BMP, serum or plasm a eGFR if africn AM 92 mL/mi n/1.7 3 >59 Not Available [facility] ([facility]) [address], [place], [address], 02/02/2016 08:18:20 02/01/20 16 02/02/2016 BMP, serum or plasm a BUN/creatini ne ratio 15 9-23 Not Available [facility] ([facility]) [address], [place], [address], 02/02/2016 08:18:20 02/01/20 16 02/02/2016 BMP, serum or plasm a sodium, serum 142 mmol/ L 134-14 4 Not Available [facility] ([facility]) [address], [place], [address], 02/02/2016 08:18:20 02/01/20 16 02/02/2016 BMP, serum or plasm a potassium, serum 4.1 mmol/ L 3.5-5. 2 Not Available [facility] ([facility]) [address], [place], [address], 02/02/2016 08:18:20 02/01/20 16 02/02/2016 BMP, serum or plasm a chloride, serum 102 mmol/ L 97-108 Not Available [facility] ([facility]) [address], [place], [address], 02/02/2016 08:18:20 02/01/20 16 02/02/2016 BMP, serum or plasm a carbon dioxide, total 23 mmol/ L 18-29 Not Available [facility] ([facility]) [address], [place], [address], 02/02/2016 08:18:20 02/01/20 16 02/02/2016 BMP, serum or plasm a calcium, serum 9.5 mg/dL 8.7-10 .2 Not Available [facility] ([facility]) [address] [place], [address], 02/02/2016 08:18:20 02/01/20 16 02/02/2016 lipid panel , serum cholesterol, total 208 mg/dL 100-19 9 above high normal Not Available [facility] ([facility]) [address], [place], [place], [address], 02/02/2016 08:18:21 02/01/20 16 02/02/2016 lipid panel , serum triglyceride s 63 mg/dL 0-149 Not Available [facility] ([facility]) [address] [place], [address], 02/02/2016 08:18:21 02/01/20 16 02/02/2016 lipid panel , serum HDL cholesterol 87 mg/dL >39 ACCOR DING TO ATP-I II GUIDE LINES , HDL-C >59 MG/DL IS CONSI DERED A NEGAT SAIRA RISK FACTO R FOR CHD. Not Available [facility] ([facility]) [address], [place], [place], [address], 02/02/2016 08:18:21 02/01/20 16 02/02/2016 lipid panel , serum VLDL cholesterol crissy 13 mg/dL 5-40 Not Available [facility] ([facility]) [address] [place], [address], 02/02/2016 08:18:21 02/01/20 16 02/02/2016 lipid panel , serum LDL cholesterol calc 108 mg/dL 0-99 above high normal Not Available [facility] ([facility]) [address] [place], [address], 02/02/2016 08:18:21 02/01/20 16 02/02/2016 lipid panel , serum comment: REFINED SYRUP OPERATOR Not Available [facility] ([facility]) [address], [place], [place], [address], 02/02/2016 08:18:21 02/01/20 16 02/01/2016 lipid panel , serum baronailin kelly LP default COMMEN T A HAND- WRITT EN PANEL /PROF GRAHAM WAS RECEI TABBY FROM YOUR OFFIC E. IN ACCOR DANCE WITH THE [facility] RP IVANNA CHAN TEST CODE POLIC Y DATED DECEMBER 2002, WE HAVE COMPL ETED YOUR ORDER BY USING THE CLOSE ST CURRE NTLY OR FORME RLY RECOG NIZED AMA PANEL . WE HAVE ASSAILIN [place] LIPID PANEL , TEST CODE #[address] IF THIS IS NOT THE TESTI NG YOU WISHE D TO RECEI VE ON THIS SPECI MEN, PLEAS E CONTA CT THE [facility] RP CLIEN T INQUI RY/TE CHNIC AL SERVI LAI DEPAR TMENT TO BELTRAN FY THE TEST ORDER . WE APPRE CIATE YOUR BUSIN ESS. Not Available [facility] ([facility]) [address], [place], [place], [address], 02/02/2016 08:18:21 05/01/20 17 05/02/2017 CBC w/ auto diff WBC 4.2 x10e3 /uL 3.4-10 .8 Not Available [facility] ([facility]) [address], [place], [place], [address], 05/02/2017 08:08:46 05/01/20 17 05/02/2017 CBC w/ auto diff RBC 4.73 x10e6 /uL 3.77-5 .28 Not Available [facility] ([facility]) [address] [place], [address], 05/02/2017 08:08:46 05/01/20 17 05/02/2017 CBC w/ auto diff hemoglobin 13.0 g/dL 11.1-1 5.9 Eff ectiv e Decem 2016 the refer ence inter jacquelyn for Hemog lobin MALES only will be antoine ing to: Males 13-15 years : 12.6 - 17.7 Males >15 years : 13.0 - 17.7 Not Available [facility] ([facility]) [address], [place], [place], [address], 05/02/2017 08:08:46 05/01/20 17 05/02/2017 CBC w/ auto diff hematocrit 39.9 % 34.0-4 6.6 Not Available [facility] ([facility]) [address], [place], [place], [address], 05/02/2017 08:08:46 05/01/20 17 05/02/2017 CBC w/ auto diff MCV 84 fL 79-97 Not Available [facility] ([facility]) [address], [place], [place], [address], 05/02/2017 08:08:46 05/01/20 17 05/02/2017 CBC w/ auto diff MCH 27.5 pg 26.6-3 3.0 Not Available [facility] ([facility]) [address], [place], [place], [address], 05/02/2017 08:08:46 05/01/20 17 05/02/2017 CBC w/ auto diff MCHC 32.6 g/dL 31.5-3 5.7 Not Available [facility] ([facility]) [address], [place], [place], [address], 05/02/2017 08:08:46 05/01/20 17 05/02/2017 CBC w/ auto diff RDW 13.5 % 12.3-1 5.4 Not Available [facility] ([facility]) [address] [place], [address], 05/02/2017 08:08:46 05/01/20 17 05/02/2017 CBC w/ auto diff platelets 253 x10e3 /uL 150-37 9 Not Available [facility] ([facility]) [address] [place], [address], 05/02/2017 08:08:46 05/01/20 17 05/02/2017 CBC w/ auto diff neutrophils 56 % not estab. Not Available [facility] ([facility]) [address], [place], [place], [address], 05/02/2017 08:08:46 05/01/20 17 05/02/2017 CBC w/ auto diff lymphs 34 % not estab. Not Available [facility] ([facility]) [address] [place], [address], 05/02/2017 08:08:46 05/01/20 17 05/02/2017 CBC w/ auto diff monocytes 7 % not estab. Not Available [facility] ([facility]) [address] [place], [address], 05/02/2017 08:08:46 05/01/20 17 05/02/2017 CBC w/ auto diff eos 2 % not estab. Not Available [facility] ([facility]) [address], [place], [place], [address], 05/02/2017 08:08:46 05/01/20 17 05/02/2017 CBC w/ auto diff basos 1 % not estab. Not Available [facility] ([facility]) [address], [place], [place], [address], 05/02/2017 08:08:46 05/01/20 17 05/02/2017 CBC w/ auto diff immature cells REFINED SYRUP OPERATOR Not Available [facility] ([facility]) [address] [place], [address], 05/02/2017 08:08:46 05/01/20 17 05/02/2017 CBC w/ auto diff neutrophils (absolute) 2.4 x10e3 /uL 1.4-7. 0 Not Available [facility] ([facility]) [address] [place], [address], 05/02/2017 08:08:46 05/01/20 17 05/02/2017 CBC w/ auto diff lymphs (absolute) 1.4 x10e3 /uL 0.7-3. 1 Not Available [facility] ([facility]) [address] [place], [address], 05/02/2017 08:08:46 05/01/20 17 05/02/2017 CBC w/ auto diff monocytes(ab solute) 0.3 x10e3 /uL 0.1-0. 9 Not Available [facility] ([facility]) [address] [place], [address], 05/02/2017 08:08:46 05/01/20 17 05/02/2017 CBC w/ auto diff eos (absolute) 0.1 x10e3 /uL 0.0-0. 4 Not Available [facility] ([facility]) [address] [place], [address], 05/02/2017 08:08:46 05/01/20 17 05/02/2017 CBC w/ auto diff baso (absolute) 0.0 x10e3 /uL 0.0-0. 2 Not Available [facility] ([facility]) [address] [place], [address], 05/02/2017 08:08:46 05/01/20 17 05/02/2017 CBC w/ auto diff immature granulocytes 0 % not estab. Not Available [facility] ([facility]) [address] [place], [address], 05/02/2017 08:08:46 05/01/20 17 05/02/2017 CBC w/ auto diff immature grans (abs) 0.0 x10e3 /uL 0.0-0. 1 Not Available [facility] ([facility]) [address] [place], [address], 05/02/2017 08:08:46 05/01/20 17 05/02/2017 CBC w/ auto diff NRBC REFINED SYRUP OPERATOR Not Available [facility] ([facility]) [address] [place], [address], 05/02/2017 08:08:46 05/01/20 17 05/02/2017 CBC w/ auto diff hematology comments: REFINED SYRUP OPERATOR Not Available [facility] ([facility]) [address], [place], [address], 05/02/2017 08:08:46 05/01/20 17 05/02/2017 BMP, serum or plasm a glucose, serum 83 mg/dL 65-99 Not Available [facility] ([facility]) [address], [place], [address], 05/02/2017 08:08:47 05/01/20 17 05/02/2017 BMP, serum or plasm a BUN 13 mg/dL 6-24 Not Available [facility] ([facility]) [address], [place], [address], 05/02/2017 08:08:47 05/01/20 17 05/02/2017 BMP, serum or plasm a creatinine, serum 0.83 mg/dL 0.57-1 .00 Not Available [facility] ([facility]) [address], [place], [address], 05/02/2017 08:08:47 05/01/20 17 05/02/2017 BMP, serum or plasm a eGFR if nonafricn AM 77 mL/mi n/1.7 3 >59 Not Available [facility] ([facility]) [address], [place], [address], 05/02/2017 08:08:47 05/01/20 17 05/02/2017 BMP, serum or plasm a eGFR if africn AM 89 mL/mi n/1.7 3 >59 Not Available [facility] ([facility]) [address], [place], [address], 05/02/2017 08:08:47 05/01/20 17 05/02/2017 BMP, serum or plasm a BUN/creatini ne ratio 16 9-23 Not Available [facility] ([facility]) [address], [place], [place], [address], 05/02/2017 08:08:47 05/01/20 17 05/02/2017 BMP, serum or plasm a sodium, serum 145 mmol/ L 134-14 4 above high normal Not Available [facility] ([facility]) [address], [place], [place], [address], 05/02/2017 08:08:47 05/01/20 17 05/02/2017 BMP, serum or plasm a potassium, serum 4.5 mmol/ L 3.5-5. 2 Not Available [facility] ([facility]) [address], [place], [place], [address], 05/02/2017 08:08:47 05/01/20 17 05/02/2017 BMP, serum or plasm a chloride, serum 106 mmol/ L 96-106 Not Available [facility] ([facility]) [address], [place], [place], [address], 05/02/2017 08:08:47 05/01/20 17 05/02/2017 BMP, serum or plasm a carbon dioxide, total 25 mmol/ L 18-29 Not Available [facility] ([facility]) [address], [place], [place], [address], 05/02/2017 08:08:47 05/01/20 17 05/02/2017 BMP, serum or plasm a calcium, serum 9.4 mg/dL 8.7-10 .2 Not Available [facility] ([facility]) [address] [place], [address], 05/02/2017 08:08:47 05/01/20 17 05/02/2017 lipid panel , serum cholesterol, total 212 mg/dL 100-19 9 above high normal Not Available [facility] ([facility]) [address], [place], [place], [address], 05/02/2017 08:08:47 05/01/20 17 05/02/2017 lipid panel , serum triglyceride s 99 mg/dL 0-149 Not Available [facility] ([facility]) [address] [place], [address], 05/02/2017 08:08:47 05/01/20 17 05/02/2017 lipid panel , serum HDL cholesterol 80 mg/dL >39 Not Available [facility] ([facility]) [address] [place], [address], 05/02/2017 08:08:47 05/01/20 17 05/02/2017 lipid panel , serum VLDL cholesterol crissy 20 mg/dL 5-40 Not Available [facility] ([facility]) [address] [place], [address], 05/02/2017 08:08:47 05/01/20 17 05/02/2017 lipid panel , serum LDL cholesterol calc 112 mg/dL 0-99 above high normal Not Available [facility] ([facility]) [address] [place], [address], 05/02/2017 08:08:47 05/01/20 17 05/02/2017 lipid panel , serum comment: REFINED SYRUP OPERATOR Not Available [facility] ([facility]) [address] [place], [address], 05/02/2017 08:08:47 05/01/20 17 05/02/2017 vitam in D, 25-hy droxy , total , serum vitamin D, 25-hydroxy 43.5 NG/mL 30.0-1 00.0 Vitam in D defic iency has been defin ed by the Insti tute of Medic ine and an Endoc rine Socie ty pract ice guide line as a level of serum 25-OH vitam in D less than 20 ng/mL (1,2) . The Endoc rine Socie ty went on to furth er defin e vitam in D insuf ficie ncy as a level betwe en 21 and 29 ng/mL (2). 1. IOM (Inst itute of Medic ine). 2010. Dieta ry refer ence intak es for calci um and D. Jayson shay [place]: [facility] . 2. Effie mosqueda MF, Michel medel [place], Jim off-F william i AMADOR, et al. Evalu ation , treat ment, and preve ntion of vitam in D defic iency : an Endoc rine Socie ty clini crissy pract ice guide line. JCEM. 2010; 96(7) :1911 -30. Not Available [facility] ([facility]) [address], [place], [place], [address], 05/02/2017 08:08:48 05/07/20 18 05/07/2018 CBC w/ auto diff WBC 4.2 K/uL 4.5-11 .0 low Not Available [facility] (Lab) [address], [place], [address], 05/07/2018 11:20:33 05/07/20 18 05/07/2018 CBC w/ auto diff RBC 4.56 M/uL 3.50-5 .50 Not Available [facility] (Lab) [address], [place], [address], 05/07/2018 11:20:33 05/07/20 18 05/07/2018 CBC w/ auto diff HGB 12.8 g/dL 12.0-1 6.0 Not Available [facility] (Lab) [address], [place], [address], 05/07/2018 11:20:33 05/07/20 18 05/07/2018 CBC w/ auto diff HCT 38.7 % 34.0-4 4.0 Not Available [facility] (Lab) [address], [place], [address], 05/07/2018 11:20:33 05/07/20 18 05/07/2018 CBC w/ auto diff MCV 84.9 fL 76.0-1 00.0 Not Available [facility] (Lab) [address], [place], [address], 05/07/2018 11:20:33 05/07/20 18 05/07/2018 CBC w/ auto diff MCH 28.1 pg 27.0-3 3.0 Not Available [facility] (Lab) [address], [place], [address], 05/07/2018 11:20:33 05/07/20 18 05/07/2018 CBC w/ auto diff MCHC 33.1 g/dL 32.0-3 7.0 Not Available [facility] (Lab) [address], [place], [address], 05/07/2018 11:20:33 05/07/20 18 05/07/2018 CBC w/ auto diff plt 282.0 K/uL 150.0- 400.0 Not Available [facility] (Lab) [address], [place], [address], 05/07/2018 11:20:33 05/07/20 18 05/07/2018 CBC w/ auto diff RDW-SD 39 fL 38-48 Not Available [facility] (Lab) [address], [place], [address], 05/07/2018 11:20:33 05/07/20 18 05/07/2018 CBC w/ auto diff RDW CV 12.5 % 11.0-1 4.5 Not Available [facility] (Lab) [address], [place], [address], 05/07/2018 11:20:33 05/07/20 18 05/07/2018 CBC w/ auto diff abs neut 2.31 K/uL 3.00-7 .00 low Not Available [facility] (Lab) [address], [place], [address], 05/07/2018 11:20:33 05/07/20 18 05/07/2018 CBC w/ auto diff abs lym 1.52 K/uL 1.20-3 .00 Not Available [facility] (Lab) [address], [place], [address], 05/07/2018 11:20:33 05/07/20 18 05/07/2018 CBC w/ auto diff abs mono 0.26 K/uL 0.20-0 .60 Not Available [facility] (Lab) [address], [place], [address], 05/07/2018 11:20:33 05/07/20 18 05/07/2018 CBC w/ auto diff abs eo 0.07 K/uL 0.06-0 .24 Not Available [facility] (Lab) [address], [place], [address], 05/07/2018 11:20:33 05/07/20 18 05/07/2018 CBC w/ auto diff abs baso 0.01 K/uL 0.01-0 .06 Not Available [facility] (Lab) [address], [place], [address], 05/07/2018 11:20:33 05/07/20 18 05/07/2018 CBC w/ auto diff neut% 55.3 % 50.0-7 0.0 Not Available [facility] (Lab) [address], [place], [address], 05/07/2018 11:20:33 05/07/20 18 05/07/2018 CBC w/ auto diff lymph% 36.4 % 25.0-4 0.0 Not Available [facility] (Lab) [address], [place], [address], 05/07/2018 11:20:33 05/07/20 18 05/07/2018 CBC w/ auto diff mono% 6.20 % 4.00-1 0.00 Not Available [facility] (Lab) [address], [place], [address], 05/07/2018 11:20:33 05/07/20 18 05/07/2018 CBC w/ auto diff eo% 1.70 % 1.00-6 .00 Not Available [facility] (Lab) [address], [place], [address], 05/07/2018 11:20:33 05/07/20 18 05/07/2018 CBC w/ auto diff baso% 0.2 % 1.0-5. 0 low Not Available [facility] (Lab) [address], [place], [address], 05/07/2018 11:20:33 05/07/20 18 05/07/2018 CBC w/ auto diff abs Ig 0.01 K/uL 0.00-0 .03 Not Available [facility] (Lab) [address], [place], [address], 05/07/2018 11:20:33 05/07/20 18 05/07/2018 CBC w/ auto diff Ig% 0.2 % 0.0-0. 4 Not Available [facility] (Lab) [address], [place], [address], 05/07/2018 11:20:33 05/07/20 18 05/07/2018 lipid panel , serum chol 156 mg/dL 75-200 Not Available [facility] (Lab) [address], [place], [address], 05/07/2018 13:08:44 05/07/20 18 05/07/2018 lipid panel , serum trig 46 mg/dL 50-200 low Not Available [facility] (Lab) [address], [place], [address], 05/07/2018 13:08:44 05/07/20 18 05/07/2018 lipid panel , serum LDL 84 mg/dL 0-140 Not Available [facility] (Lab) [address], [place], [address], 05/07/2018 13:08:44 05/07/20 18 05/07/2018 lipid panel , serum chol/HDL 2.48 2.00-5 .00 Not Available [facility] (Lab) [address], [place], [address], 05/07/2018 13:08:44 05/07/20 18 05/07/2018 lipid panel , serum HDL D 63 mg/dL 40-60 high Not Available [facility] (Lab) [address], [place], [address], 05/07/2018 13:08:44 05/07/20 18 05/07/2018 lipid panel , serum VLDL 9 mg/dL 5-40 Not Available [facility] (Lab) [address], [place], [address], 05/07/2018 13:08:44 05/07/20 18 05/07/2018 lipid panel , serum non HDL chol 93.00 mg/dL 30.00- 170.00 Not Available [facility] (Lab) [address], [place], [address], 05/07/2018 13:08:44 05/07/20 18 05/07/2018 BMP, serum or plasm a glucose 83 mg/dL 65-99 Not Available [facility] (Lab) [address], [place], [address], 05/08/2018 08:08:54 05/07/20 18 05/07/2018 BMP, serum or plasm a BUN 14 mg/dL 8-27 Not Available [facility] (Lab) [address], [place], [address], 05/08/2018 08:08:54 05/07/20 18 05/07/2018 BMP, serum or plasm a creatinine 0.74 mg/dL 0.57-1 .00 Not Available [facility] (Lab) [address], [place], [address], 05/08/2018 08:08:54 05/07/20 18 05/07/2018 BMP, serum or plasm a eGFR if nonafricn AM 88 mL/mi n/1.7 3 >59 Not Available [facility] (Lab) [address], [place], [address], 05/08/2018 08:08:54 05/07/20 18 05/07/2018 BMP, serum or plasm a eGFR if africn AM 102 mL/mi n/1.7 3 >59 Not Available [facility] (Lab) [address], [place], [address], 05/08/2018 08:08:54 05/07/20 18 05/07/2018 BMP, serum or plasm a BUN/creatini ne ratio 19 12-[address] [facility] (Lab) [address], [place], [address], 05/08/2018 08:08:54 05/07/20 18 05/07/2018 BMP, serum or plasm a sodium 144 mmol/ L 134-14 4 Not Available [facility] (Lab) [address], [place], [address], 05/08/2018 08:08:54 05/07/20 18 05/07/2018 BMP, serum or plasm a potassium 4.4 mmol/ L 3.5-5. 2 Not Available [facility] (Lab) [address], [place], [address], 05/08/2018 08:08:54 05/07/20 18 05/07/2018 BMP, serum or plasm a chloride 108 mmol/ L 96-106 high Not Available [facility] (Lab) [address], [place], [address], 05/08/2018 08:08:54 05/07/20 18 05/07/2018 BMP, serum or plasm a carbon dioxide, total 25 mmol/ L 20- Not Available [facility] (Lab) [address], [place], [address], 05/08/2018 08:08:54 05/07/20 18 05/07/2018 BMP, serum or plasm a calcium 9.1 mg/dL 8.7-10 .3 Not Available [facility] (Lab) [address], [place], [address], 05/08/2018 08:08:54 05/16/20 16 05/16/2016 MAMMO , scree shari, digit al, bilat eral PROCED URE: MG DIGITA L MAMMO SCREEN ING COMPAR RUCHI: [facility], MG, MG DIGITA L MAMMO SCREEN ING, 2014, 16:03. TECHNI QUE: MLO and CC views of each breast are obtain ed. The images are review ed with the Loop[employer] er aided detect ion system . BREAST COMPOS ITION: Hetero geneou sly dense, which could obscur e small masses . FINDIN GS: Scatte red puncta te microc alcifi cation s are identi fied bilate rally, minima lly more appare nt. There are no new suspic ious microc alcifi cation s noted. No new or enlarg ing suspic ious domina nt focal mass is identi fied, and no new or persis tent area of abner ectura l distor tion or skin thicke shari is apprec iated. DIAGNO STIC CATEGO RY 2--MARCELO IGN FINDIN GS. IMPRES DELMY: No new or increa sing suspic ious focal abnorm ality is noted. As long as breast physic al examin ation remain s unrema rkable , follow up annual mammog neda is recomm ended. R[facility]IN E [facility] AL EVALUA TION. BIRAD Catego ry 1 - Negati ve mammog laura BIRAD Catego ry 2 - Benign findin gs BIRAD Catego ry 3 - Probab ly benign findin gs - Short- term follow up recomm ended. BIRAD Catego ry 4 - Suspic ious findin gs - Biopsy recomm ended. BIRAD Catego ry 5 - Highly sugges tive of malign virgen - biopsy recomm ended. BIRAD Catego ry 0 - Incomp lete - needs additi onal imagin g evalua tion. PLEASE NOTE: 1. A negati ve mammog laura report should not delay biopsy of a domina nt or clinic ally suspic ious mass. 4 to 8% of breast cancer s are not identi fied by mammog neda. 2. Dense fibrog landul ar tissue decrea ses sensit ivity of mammog neda. Dr. Manjeet Trujillo Dictat ed by: Dr. Manjeet Trujillo on 2015 at 8:54 Approv ed by: Dr. Manjeet Trujillo on 2015 at 8:54 [facility] (Imaging) [address], [place], [address], 05/16/2016 10:53:47 10/21/19 17 10/20/2016 XR, foot, 3 or more view PROCED URE: RIGHTF OOT COMPLE TE 3 OR MORE VIEWS INDICA TIONS: M79.67 1 PAIN IN RIGHT FOOT FINDIN GS: No discre te fractu re or defini te physea l wideni ng. No radiop aque foreig n body. Alignm ent is anatom ic for techni que. No domina nt radiog raphic soft tissue abnorm ality. Joint spaces are preser tabby. Minima l degene rative change s great toe MTP joint. IMPRES DELMY: Minima l degene rative change s great toe MTP joint. Otherw ise, within normal limits for age. Anthony heller M.D. Dictat ed by: Anthony heller M.D. on 017 at 12:41 Approv ed by: Anthony heller M.D. on 017 at 12:41 [email or web address] [facility] (Imaging) [address], [place], [address], 10/21/2016 11:07:19 12/17/19 17 12/16/2016 XR, lumbo sacra l spine , 2 or 3 view PROCED URE: LUMBAR SPINE 2 OR 3 VIEWS INDICA TIONS: m79.67 1 pain in right foot FINDIN GS: There are 5 non-ri b bearin g lumbar type verteb ral bodies . Verteb ral body height s are preser tabby withou t eviden ce of acute compre ssion fractu re. Gentle levoco nvex curvat ure of the lower thorac ic and upper lumbar spine may be in part positi onal or second tiffani to parave rtebra l muscul ar spasm. Slight L4-L5 and L5-S1 disc space narrow ing. Mild multil evel discog enic degene rative change s and lower lumbar facet hypert rophy. SI joints are unrema rkable . Nonobs tructi ve bowel gas patter n. Likely puncta te pelvic phlebo liths. IMPRES DELMY: 1. Mild multil evel degene rative change s of the lumbar spine for age, most pronou nced inferi brenda. 2. Slight alignm ent abnorm ality may sugges t parave rtebra l muscul ar spasm. Anthony heller M.D. Dictat ed by: Anthony heller M.D. on 017 at 10:21 Approv ed by: Anthony heller M.D. on 017 at 10:[address] (Imaging) [address] [place] [address] [address], [place], [address], 12/16/2016 16:48:10 12/25/19 17 12/24/2016 MRI, lumba r spine , w/o contr ast PROCED URE: MRI LUMBAR SPINE WITHOU T CONTRA ST INDICA TIONS: M79.67 1 PAIN IN RIGHT FOOT TECHNI QUE: Routin e multip lanar sequen lai are perfor med. FINDIN GS: Compar ruchi is made with lumbar spine radiog raphs dated 7. Mild scolio sis is again noted. Otherw ise, alignm ent is anatom ic. There is loss of T2 disc space signal throug hout compat ible with desicc ation. Disc space height s are grossl y mainta ined, althou gh mild anteri or osteop hytic spurri ng is presen t at severa l levels . No nondis cogeni c region s of marrow signal abnorm ality are noted. Conus medull ed signal and morpho logy appear s normal . On axial images , there are mild diffus e and slight ly irregu lar annula r bulges throug hout, especi ally involv ing the L4-5 level where there is mild associ ated flatte shari of the anteri or thecal sac. There is a centra l annula r tear at the L5-S1 level. No region of high-g rade stenos is or focal imping ement is identi fied. IMPRES DELMY: 1. Multil evel desicc ation and mild degene rative disc change as above. There is mild centra l canal stenos is at the L4-5 level, with a centra l annula r tear at the L5-S1 level. No region of high-g rade stenos is or focal imping ement is noted. 2. Mild scolio sis. Dr. Manjeet Trujillo Dictat ed by: Dr. Manjeet Trujillo on 017 at 9:33 Approv ed by: Dr. Manjeet Trujillo on 017 at 9:[address] (Imaging) [address] [place] [address] [address], [place], [address], 01/02/2017 09:40:43 12/25/19 17 12/24/2016 MRI, lower extre mity joint (s), w/o contr ast PROCED URE: MRI RIGHT LOWER EXTREM ITY JOINT WITHOU T CONTRA ST INDICA TIONS: M79.67 1 PAIN IN RIGHT FOOT/M 54.16 TECHNI QUE: Routin e multip lanar sequen lai are perfor med. FINDIN GS: Compar ruchi is made with right foot radiog raphs dated 10/22. Alignm ent is anatom ic. No region of marrow signal abnorm ality is noted. No tendin ous or ligame ntous disrup tion or focal signal intens ity abnorm ality is apprec iated, and remain ing visual ized soft tissue s and osseou s struct ures are likewi se within normal limits . IMPRES DELMY: Within normal limits for age and techni que. Dr. Manjeet Trujillo Dictat ed by: Dr. Manjeet Trujillo on 017 at 10:08 Approv ed by: Dr. Manjeet Trujillo on 017 at 10:[address] (Imaging) [address], [place], [address], 01/02/2017 09:09:38 05/21/20 17 05/21/2017 DEXA, axial skele ton PROCED URE: DX DEXA SCAN SPINE INDICA TIONS: n95.9 menopa usal syndro me TECHNI QUE: AP view of the lumbar spine and left hip is obtain ed utiliz ing a [employer] y DEXA Unit. FINDIN GS: Bone densit ometry was perfor med in this 57-yea r-old white female . Bone minera l densit y of the lumbar spine from L1-L4 is 0.951 g/cm2, consis tent with a Young refere nce standa rd of 81%. Z score is -0.6. T score is -1.9, within the osteop enia range. Bone minera l densit y of the left femora l neck is 0.699 g/cm2, consis tent with a Young refere nce standa rd of 67%. Z score is -1.1. T score is -2.4, within the osteop enia range, near the osteop orosis thresh old. IMPRES DELMY: Values of the lumbar spine and left femora l neck are within the osteop enia range for age. Fractu re risk is increa sed. Dr. Manjeet Trujillo Dictat ed by: Dr. Manjeet Trujillo on 2016 at 14:15 Approv ed by: Dr. Manjeet Trujillo on 2016 at 14:[address] (Imaging) [address], [place], [address], 06/05/2017 15:51:16 05/21/20 17 05/21/2017 MAMMO , scree shari, digit al, bilat eral, w/ CAD PROCED URE: MG DIGITA L MAMMO SCREEN ING W CAD COMPAR RUCHI: [facility], MG, MG DIGITA L MAMMO SCREEN ING, 2015, 8:53. TECHNI QUE: MLO and CC views of each breast are obtain ed. The images are review ed with the LoopNet er aided detect ion system . BREAST COMPOS ITION: Hetero geneou sly dense, which could obscur e small masses . FINDIN GS: Scatte red puncta te and rim microc alcifi cation s are again identi fied, slight ly more appare nt. No new suspic ious microc alcifi cation s are noted. No new or enlarg ing suspic ious domina nt focal mass is identi fied, and no new or persis tent area of abner ectura l distor tion or skin thicke shari is apprec iated. DIAGNO STIC CATEGO RY 2--MARCELO IGN FINDIN GS. IMPRES DELMY: No new suspic ious focal mammog raphic abnorm ality is apprec iated. As long as breast physic al examin ation remain s unrema rkable , follow up annual mammog neda is recomm ended. R[facility]IN E [facility] AL EVALUA TION. BIRAD Catego ry 1 - Negati ve mammog laura BIRAD Catego ry 2 - Benign findin gs BIRAD Catego ry 3 - Probab ly benign findin gs - Short- term follow up recomm ended. BIRAD Catego ry 4 - Suspic ious findin gs - Biopsy recomm ended. BIRAD Catego ry 5 - Highly sugges tive of malign virgen - biopsy recomm ended. BIRAD Catego ry 0 - Incomp lete - needs additi onal imagin g evalua tion. PLEASE NOTE: 1. A negati ve mammog laura report should not delay biopsy of a domina nt or clinic ally suspic ious mass. 4 to 8% of breast cancer s are not identi fied by mammog neda. 2. Dense fibrog landul ar tissue decrea ses sensit ivity of mammog neda. Dr. Manjeet Trujillo Dictat ed by: Dr. Manjeet Trujillo on 2016 at 14:18 Approv ed by: Dr. Manjeet Trujillo on 2016 at 14:18 [facility] (Imaging) [address], [place], [address], 05/21/2017 18:08:55 08/10/19 19 08/09/2018 MAMMO , scree shari, digit al, bilat eral, w/ CAD PROCED URE: MG DIGITA L MAMMO SCREEN ING W CAD COMPAR RUCHI: [facility], MG, MG DIGITA L MAMMO SCREEN ING, 2015, 8:53. [facility], MG, 2017 MG DIGITA L MAMMO SCREEN ING W CAD, 2016, 14:50. TECHNI QUE: MLO and CC views of each breast are obtain ed. The images are review ed with the LoopNet er aided detect ion system . BREAST COMPOS ITION: Hetero geneou sly dense, which could obscur e small masses . FINDIN GS: Overal l stable parenc hymal patter n. No new suspic ious findin gs. DIAGNO STIC CATEGO RY 2--MARCELO IGN FINDIN GS. IMPRES DELMY: No mammog raphic eviden ce of malign virgen. Recomm end contin ued annual screen ing mammog neda as well as clinic al breast exams. A result letter will be sent to the patien t. R[facility]IN E [facility] AL EVALUA TION. BIRAD Catego ry 1 - Negati ve mammog alura BIRAD Catego ry 2 - Benign findin gs BIRAD Catego ry 3 - Probab ly benign findin gs - Short- term follow up recomm ended. BIRAD Catego ry 4 - Suspic ious findin gs - Biopsy recomm ended. BIRAD Catego ry 5 - Highly sugges tive of malign virgen - biopsy recomm ended. BIRAD Catego ry 0 - Incomp lete - needs additi onal imagin g evalua tion. PLEASE NOTE: 1. A negati ve mammog laura report should not delay biopsy of a domina nt or clinic ally suspic ious mass. 4 to 8% of breast cancer s are not identi fied by mammog neda. 2. Dense fibrog landul ar tissue decrea ses sensit ivity of mammog neda. Anthony heller M.D. Dictat ed by: Anthony heller M.D. on 019 at 16:22 Approv ed by: Anthony heller M.D. on 019 at 16:22 [facility] (Imaging) [address] [facility], [place], [address], 08/09/2018 18:08:16 Result Notes None recorded. Problems Name Problem SNOMED Code Status Onset Date Resolution Date Notes Provider Name and Address Organization Details Recorded Time Allergic rhinitis 34779603 Active 017 Jose Talley M.D. [address] [facility] [address], [place], [address] , [facility] 7 15:40:09 Problem Notes None recorded. Procedures Surgical History Date Name Laterality Status Provider Name and Address Organization Details Recorded Time 6 Date of Last Pap Smear completed Chuyita Sanchez [facility] 04/20/2017 15:23:17 4 Most Recent Mammogram completed [facility] 06/26/2014 09:31:32 4 Screening Mammogram completed [facility] 06/26/2014 09:31:34 4 Most Recent Bone Density completed [facility] 06/26/2014 09:31:32 0 Dilation and Curettage (D&C) completed [facility] 06/26/2014 09:31:34 9 Colonoscopy completed [facility] 06/26/2014 09:31:34 4 Caesarean Section completed [facility] 06/26/2014 09:31:34 1 Caesarean Section completed [facility] 06/26/2014 09:31:34 7 [place] Teeth Surgery completed [facility] 06/26/2014 09:31:34 11/01/197 6 Knee Surgery completed Miryam Mychal [facility] 06/26/2014 09:31:34 Imaging Results None recorded. Procedure Notes None recorded. Medical Equipment None Reported. Allergies Allergen ID Allergen Name Allergen Category Reaction Reaction Severity Criticality Documentation Date Start Date Code Code System Note Provider Name and Address Organization Details Recorded Time 54920 ibuprofen medicatio n facial swelling Not available Not available 01/29/2016 5640 RxNorm Preeti guillen [facility] 6 16:09:21 Medications Name Sig Start Date Stop Date Status Note LastModified by Organization Details LastModified Time Medrol (Rigoberto) 4 mg tablets in a dose pack Take by oral route as per package instructi ons 10/29 completed Not Available Not Available Not Available multivitami n 2015 active Not Available Not Available Not Avai lable Yola Allergy 180 mg tablet Take 1 tablet every day by oral route. 2016 active Not Available Not Available Not Avai lable Vitals Date Recorded Body height Body weight Body mass index (BMI) Body temperature Oxygen saturation Oxygen saturation in Arterial blood by Pulse oximetry Heart rate Systolic And Diastolic Provider Name and Address Organization Details Last Updated DateTime 7 152.4 cm 11995.8 8 g 25.5 kg/m2 98.4 [degF] 99 % 99 % 65 /min 122/78 mm[Hg] Chuyita Sanchez [facility] 7 13:07:56 Date Recorded Body mass index (BMI) Heart rate Body height Oxygen saturation Oxygen saturation in Arterial blood by Pulse oximetry Body temperature Body weight Systolic And Diastolic Provider Name and Address Organization Details Last Updated DateTime 7 25.5 kg/m2 65 /min 152.4 cm 99 % 99 % 98.4 [degF] 31834.8 8 g 122/78 mm[Hg] Not Available [facility] 2 09:33:16 Date Recorded Body height Body weight Body mass index (BMI) Body temperature Oxygen saturation Oxygen saturation in Arterial blood by Pulse oximetry Heart rate Systolic And Diastolic Provider Name and Address Organization Details Last Updated DateTime 7 152.4 cm 67538.7 6 g 25.7 kg/m2 98.6 [degF] 98 % 98 % 69 /min 118/78 mm[Hg] Chuyita Sanchez [facility] 7 14:45:56 Date Recorded Body mass index (BMI) Heart rate Body height Oxygen saturation Oxygen saturation in Arterial blood by Pulse oximetry Body temperature Body weight Systolic And Diastolic Provider Name and Address Organization Details Last Updated DateTime 7 25.7 kg/m2 69 /min 152.4 cm 98 % 98 % 98.6 [degF] 18910.7 6 g 118/78 mm[Hg] Not Available [facility] 2 09:33:16 Date Recorded Body height Body mass index (BMI) Body weight Body temperature Heart rate Oxygen saturation Oxygen saturation in Arterial blood by Pulse oximetry Systolic And Diastolic Provider Name and Address Organization Details Last Updated DateTime 6 152.4 cm 25 kg/m2 85938.5 64790 g 98.5 [degF] 63 /min 99 % 99 % 126/80 mm[Hg] Preeti Daley [facility] 6 16:11:46 Date Recorded Body mass index (BMI) Heart rate Body height Oxygen saturation Oxygen saturation in Arterial blood by Pulse oximetry Body temperature Body weight Systolic And Diastolic Provider Name and Address Organization Details Last Updated DateTime 6 25 kg/m2 63 /min 152.4 cm 99 % 99 % 98.5 [degF] 97466.5 418 g 126/80 mm[Hg] Not Available [facility] 2 09:33:16 Date Recorded Body height Body mass index (BMI) Body weight Body temperature Oxygen saturation Oxygen saturation in Arterial blood by Pulse oximetry Heart rate Systolic And Diastolic Provider Name and Address Organization Details Last Updated DateTime 7 152.4 cm 25.9 kg/m2 45414.3 5 g 98.9 [degF] 96 % 96 % 89 /min 116/74 mm[Hg] Chuyita Sanchez [facility] 7 15:27:40 Date Recorded Body mass index (BMI) Heart rate Body height Oxygen saturation Oxygen saturation in Arterial blood by Pulse oximetry Body temperature Body weight Systolic And Diastolic Provider Name and Address Organization Details Last Updated DateTime 7 25.9 kg/m2 89 /min 152.4 cm 96 % 96 % 98.9 [degF] 11558.3 5 g 116/74 mm[Hg] Not Available [facility] 2 09:33:16 Date Recorded Body weight Body temperature Oxygen saturation Oxygen saturation in Arterial blood by Pulse oximetry Heart rate Systolic And Diastolic Provider Name and Address Organization Details Last Updated DateTime 8 80974.5 1 g 98.1 [degF] 9 % 9 % 72 /min 118/64 mm[Hg] Shelby Ortizws [facility] 8 09:05:20 Date Recorded Heart rate Oxygen saturation Oxygen saturation in Arterial blood by Pulse oximetry Body temperature Body weight Systolic And Diastolic Provider Name and Address Organization Details Last Updated DateTime 8 72 /min 9 % 9 % 98.1 [degF] 30607.5 1 g 118/64 mm[Hg] Not Available [facility] 2 09:33:16 Social History Question Answer Notes LastModified by Organizat ion Details LastModified Time Tobacco Smoking Status Never Smoker Miryam guillen, [facility] 06/26/2014 09:31:33 What Is Your Level Of Caffeine Consumption? Occasional Information not available 06/26/2014 How Much Tobacco Do You Chew? None Information not available 06/26/2014 What Type Of Diet Are You Following? REGULAR Information not available 04/20/2017 Education 2 Year College Informatio n not available 06/26/2014 Are There Any Guns Present In Your Home? No Information not available 06/26/2014 Hard Of Hearing Or Deaf In One Or Both Ears? No Information not available 06/26/2014 Legally Blind In One Or Both Eyes? No Information not available 06/26/2014 Marital Status Informatio n not available 06/26/2014 What Was The Date Of Your Most Recent Tobacco Screening? 05/04/2018 Information not available 12/30/2018 Seat Belts Used Routinely Yes Information not available 06/26/2014 Smoke Alarm In Home Yes Information not available 06/26/2014 Do You Have Smoke And Carbon Monoxide Detectors In Your Home? Yes Information not available 04/20/2017 Are You Passively Exposed To Smoke? No Information not available 06/26/2014 How Much Tobacco Do You Smoke? No Information not available 05/04/2018 Sex: Unknown Functional Status Question Answer Note LastModified by Organizat ion Details LastModified Time What is your level of alcohol consumption? Occasional Information not available 06/26/2014 Are you able to care for yourself? Yes Information not available 06/26/2014 What is your occupation? Retired Information not available 06/26/2014 What is your exercise level? Moderate Information not available 06/26/2014 Mental Status None recorded. Family History Relationship Description Onset Age of this Age Resolved Age Notes LastModified by Organization Details LastModified Time Maternal Grandmother Rheumatoid arthritis [email or web address] Not available 05/04 08:51:15 Father Depressive disorder [email or web address] Not available 05/04 08:51:15 Mother Polyp of colon [email or web address] Not available 05/04 08:51:15 Mother Osteoporosis Not emy ilable 05/04/2018 08:51:15 Mother Hypertensive disorder [email or web address] Not available 05/04 08:51:15 Paternal Aunt Malignant tumor of breast 60 [email or web address] Not available 05/04 08:51:15 Maternal Grandfather Diabetes mellitus [email or web address] Not available 05/04 08:51:15 Maternal Grandfather Malignant neoplasm of lung [email or web address] Not available 05/04 08:51:15 Paternal Grandmother Osteoarthrit is [email or web address] Not available 05/04 08:51:15 Unspecified Relation Malignant tumor of breast [email or web address] Not available 05/04 08:51:15 Paternal Aunt Malignant tumor of breast 60 migration.[email or web address] Not available 09:35:44 Unspecified Relation Malignant tumor of breast migration.[email or web address] Not available 09:35:44 Medical History Condition Response Coronary Artery Disease N Irritable bowel disease N Atrial Fibrillation N Kidney Stones Y Abnormal pap smear N Hyperthyroidism N COPD (Emphysema) N Strep throat, recurrent N Depression N Hypothyroidism N Hypertension (High Blood Pressure) N Headaches/Migraines N Deep Vein Thrombosis N Anxiety Disorder N Arthritis N Acid Reflux (GERD) N Cancer N Stroke N Crohn's Disease N Appendicitis N Bladder or Kidney Problems N High Cholesterol N Liver Disease N Kidney Disease N Allergies/Hayfever Y Osteoarthritis N Gallbladder Disease N Angina N Anemia N Other_ N Myocardial Infarction ( Heart Attack) N Mental Illness N Diabetes N Bedwetting N Bleeding Disorder N Blood Transfusions N Seizures/Epilepsy N Eczema N Diverticulitis N Blood clotting disorder N Asthma N Hepatitis N Chicken Pox Y Osteoporosis N Gynecological History Statement/Question Response Abnormal Pap Y Flow Light Are you or could you be ? N Date of LMP 12/20/2013 Duration of Flow (days) 5 Age at Menarche 9 Current Control Method Menopause Most Recent Mammogram 04/17/2014 If Post Menopausal, Age at Menopause 51 Most Recent Bone Density 02/20/2014 Date of Last Pap Smear 02/16/2016 Obstetrics History GPAL:G 2 P 2 0 0 0 Type Value Full Term 2 Total 2 Immunizations Vaccine Type Date Status Note Provider Nam e and Address Organization Details Recorded Time Influenza, MDCK, quadrivalent, preservative 8 completed Not Available [facility] 01/26/2022 09:35:20 Influenza, split virus, quadrivalent, PF 7 completed Not Available [facility] 01/26/2022 09:35:20 Influenza, split virus, quadrivalent, PF 7 completed Not Available [facility] 06/25/2019 02:28:46 Influenza, MDCK, quadrivalent, preservative 8 completed Not Available [facility] 06/25/2019 02:37:04 Tdap 4 completed Not Available [facility] 07/09/2019 02:18:24 Past Encounters Encounter ID Performer Location Encounter Start Date Encounter Closed Date Diagnosis/Indication Diagnosis SNOMED-CT Code Diagnosis ICD10 Code Diagnosis Note [id number] ENT [address] [facility] ANNA MCMANUS [id number] 0 10/05/2013 00:00:00 [id number] Jose Talley M.D. [facility] [address] [place] [address] ANNA MCMANUS [id number] 7 06/26/2014 09:08:59 06/26/2014 10:24:43 Adult health examination [id number] Jose Talley M.D. [facility] [address] [place], [place] [address] [address] 07/06/2014 14:54:59 07/06/2014 16:13:07 Abnormal cervical Papanicolaou smear [id number] Jose Talley M.D. [facility] [address] [place], [place] [address] [address] 01/05/2015 14:47:31 01/05/2015 15:30:17 Abnormal cervical Papanicolaou smear [id number] Jose Talley M.D. Primary Care [address] [place] [address] 7 01/29/2016 15:48:58 01/29/2016 17:07:31 Adult health examination 177223154 Z00.00 Allergic reaction 765370 005 T78.40XD [id number] Jose Talley M.D. [facility] [address] [place] [id number] 7 10/20/2016 12:26:36 10/20/2016 13:21:59 Pain in right foot 0018340916 16387 M79.797 [id number] Jose Talley M.D. [address] [address] 10/29/2016 14:24:44 10/29/2016 15:30:01 Pain in toe 735940503 M79.314 [id number] Jose Talley M.D. Primary [facility] [address] [place] [id number] 7 04/20/2017 15:11:49 04/20/2017 16:02:39 Screening mammography 78540279 Z12.31 Adult [facility] th examination 802555974 Z00.00 Menopausal syndrome 1237 15638 N95.9 Administra tion of influenza vaccine 22886577 Z23 [id number] Jose Talley M.D. Primary [facility] [address] [place] [id number] 7 05/04/2018 08:44:56 05/04/2018 10:04:40 Adult health examination 565973328 Z00.00 Screening for malignant neoplasm of cervix 168118629 Z12.4 Screening for malignant neoplasm of breast 731799221 Z12.39 Dupuytren' s disease of palm 743478110 M72.0 Administra tion of influenza vaccine 48570469 Z23 Health Concerns Section Related Observation LastModified by Organization Detai ls LastModified Time None Recorded Concern Status LastModified by Organization Details LastModified Time None Recorded Advance Directives Directive None Recorded Payers Insurance Date Sequence Insurance Name Policy Number Policy Dent Covered Member ID Dent Member ID Guarantor Name 08/09/2018 1 [facility] (O) [id number] Gera Fernandez Márquez [id number] Nola Willi Notes Date Note Type Note Provider Name and Address Organization Details Recorded Time 01/29/2016 text/html HPI Here for CPE and PAP. No concerns. Had previous reaction possibly to ibuprofen with facial swelling - wants to get some testing to verify the cause. Jose Talley M.D. [address] [facility] [place], [address], [facility] 01/29/2016 20:33:29 10/20/2016 text/html Has been limping on right leg with walking. gets pain at 4th toe, pain at arch, and intermittent numbness going down lateral lower leg. Jose Talley M.D. [address] [facility], [place], [address], [facility] 10/27/2016 08:35:47 10/29/2016 text/html Had some improvement in right foot pain with the Depomedrol. Pain now mostly at the right 4th toe. No known injury. Jose Talley M.D. [address], [place], [address], [facility] 10/29/2016 15:11:24 04/20/2017 text/html Here for CPE. Amador s been getting PAP done at [facility]. Due for Mammo next month. Due for colonoscopy next year. Jose Talley M.D. [address] [facility], [place], [address], [facility] 04/20/2017 15:50:21 05/04/2018 text/html 58yr old F here for CPE, Mammo 2017, would like to have Pap done today, needs flu vaccine today. Has nodules in right palm and will like to talk about it she noticed it a couple months ago. It doesn't hurt. Jose Talley M.D. [address] [place] [address],[facility], [place], [address], [place] [facility] 05/04/2018 10:03:27 OBGyn Episode No OBEpisode recorded.
--- OUTSIDE RECORDS SUMMARY | 2024-11-01 14:25 | XMS_ITS | Referral Summary ---
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 Gender Identity Female 09/16/2020 8:47 PM CDT Sexual Orientation Not on file Last Filed Vital Signs Vital Sign Reading Time Taken Comments Blood Pressure 118/78 09/17/2020 10:39 AM CDT Pulse - - Temperature - - Respiratory Rate - - Oxygen Saturation - - Inhaled Oxygen Concentration - - Weight 58.8 kg (129 lb 9.6 oz) 09/17/2020 10:39 AM CDT Height 149.9 cm (4' 11) 09/17/2020 10:39 AM CDT Body Mass Index 26.18 09/17/2020 10:39 AM CDT Plan of Treatment Not on file Insurance [facility] Advance Directives For more information, please contact: [phone] Documents on File Type Date Recorded 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
--- OUTSIDE RECORDS SUMMARY | 2024-11-01 14:25 | XMS_ITS | Clinical Summary ---
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
[2024-11-01 14:35] LABS: Hemoglobin 12.5 g/dL (11.7-13.8); Mean Corpuscular HGB Conc 32.9 g/dL (32-36); Mean Corpuscular Hemoglobin 27.9 pg (27.0-31.0); Mean Corpuscular Volume 84.8 fL (78.0-102.0); Mean Platelet Volume 10.2 fl (9.2-11.8); Platelet Count Result 263 K/mm3 (150-420); Red Blood Count 4.48 M/mm3 (4.20-5.40); Red Cell Distribution Width 12.8 % (11.6-14.4); White Blood Count 7.5 K/mm3 (4.8-10.8)
[2024-11-01 14:53] LABS: Alanine Aminotransferase 15 U/L (6-35); Albumin Level 4.4 g/dL (3.5-5.1); Alkaline Phosphatase 56 U/L (38-126); Amylase 102 U/L (30-110); Anion Gap 3 mmol/L (4-12); Aspartate Amino Transferase 32 U/L (14-36); Bilirubin,Total 0.6 mg/dL (0.2-1.3); Blood Urea Nitrogen 18 mg/dL (7-17); Calcium 9.7 mg/dL (8.4-10.2); Carbon Dioxide 26 mmol/L (22-30); Chloride 111 mmol/L (98-107); Creatine Kinase 111 U/L (30-135); Estimated Glomerular Filt Rate > 60; Glucose 94 mg/dL (65-110); Lipase 100 U/L (23-300); Osmolality Calculated 291 mOsm/kg (285-295); Potassium 4.3 mmol/L (3.4-5.0); Sodium 140 mmol/L (137-145); Total Protein 6.9 g/dL (6.3-8.2)
[2024-11-01 14:55] LABS: Add Urine Microscopic? YES; Appearance Urine Clear (Clear); Bilirubin Urine Negative (Negative); Blood Urine Negative (Negative); Color Urine Light Yellow (Yellow); Glucose Urine UA Negative (Negative); Ketones Urine Negative (Negative); Leukocyte Esterase Ur 2+ (Negative); Nitrate Urine Negative (Negative); Protein Urine Negative (Negative); Specific Grav Ur 1.025 (1.010-1.020); Urobilinogen Urine 0.2 mg/dL (0.2-1.0)
[2024-11-01 15:01] LABS: RBC Urine 0-2 /hpf (0-2); WBC Urine 0-5 /hpf (0-3)
[2024-11-01 15:02] LABS: Bacteria Urine Trace /hpf; Squamous Epithelial Cell Urine Few /hpf (Few)
[2024-11-01 15:05] LABS: Troponin I < 0.012 ng/mL (0.000-0.034)
[2024-11-01 15:10] LABS: Free T4 Free Thyroxine 1.33 ng/dL (0.78-2.19)
== END 2024-11-01 14:22 | disposition home or self-care (01) ==
LOC: CHSLAB 14:22
PROVIDERS: PCP Internal Medicine; Visit Provider Nurse Practitioner Family
DX: R07.89 Other chest pain (principal); R53.83 Other fatigue
CPT/HCPCS: 36415; 71046; 80053; 81001; 82150; 82550; 82553; 83690; 84439; 84443; 84484; 85027